=== PATIENT | female | born 1950 | race Caucasian/White ===

== ENCOUNTER 2022-03-28 15:48 | Outpatient (REF) | payer OTHER, SELFPAY ==
--- NOTE | ~2022-03-28 | XR_ITS ---
EXAMINATION: LEFT ANKLE, LEFT FOOT CLINICAL INFORMATION: Left foot and ankle pain COMPARISON: None TECHNIQUE: 2 views left ankle, 3 views left foot FINDINGS: Ankle: Bilateral soft tissue swelling is seen. The ankle mortise appears stable. No ankle joint effusion or fracture. Left foot: Degenerative changes are present at the interphalangeal joints as well as the first metatarsal phalangeal joint and at the metatarsal tarsal joints most marked in the second through third digits. No fractures or bony destructive lesions are seen. Well-corticated osseous density seen at the base of the fifth metatarsal without soft tissue swelling possibly related to chronic injury. Minimal plantar calcaneal spur. XR/XR foot LT min 3V IMPRESSION: Degenerative changes are present evidence of remote trauma. No evidence of an acute injury.
--- NOTE | ~2022-03-28 | XR_ITS ---
EXAMINATION: LEFT ANKLE, LEFT FOOT CLINICAL INFORMATION: Left foot and ankle pain COMPARISON: None TECHNIQUE: 2 views left ankle, 3 views left foot FINDINGS: Ankle: Bilateral soft tissue swelling is seen. The ankle mortise appears stable. No ankle joint effusion or fracture. Left foot: Degenerative changes are present at the interphalangeal joints as well as the first metatarsal phalangeal joint and at the metatarsal tarsal joints most marked in the second through third digits. No fractures or bony destructive lesions are seen. Well-corticated osseous density seen at the base of the fifth metatarsal without soft tissue swelling possibly related to chronic injury. Minimal plantar calcaneal spur. XR/XR ankle LT 2V IMPRESSION: Degenerative changes are present evidence of remote trauma. No evidence of an acute injury.
== END 2022-03-28 15:49 | disposition home or self-care (01) ==
LOC: HO.HMGCX 15:48
PROVIDERS: PCP Internal Medicine; Visit Provider Physician Assistant
DX: M79.672 Pain in left foot (principal)
CPT/HCPCS: 73600; 73630

== ENCOUNTER 2023-06-12 07:58 | Day surgery (SDC) | payer OTHER, SELFPAY ==
[2023-06-07 15:34] VITALS: BMI 38.8
--- NOTE | 2023-06-09 07:42 | MHC.SHP ---
Pre-Procedural Eval Section A Date of Service: 06/09/23 The patient is an INPATIENT: No Changes since office visit: No Cold of Flu in the past 2 weeks, No New Medical Problems, No Changes in Medication and No Patient answered all questions The History & Physical has been completed within 30 days and I have reviewed it.: Yes Section B Chief Complaint: Age-related nuclear cataract, right eye Allergies: Allergies Allergy/AdvReac Type Severity Reaction Status Date / Time No Known Allergies Allergy Verified 06/07/23 15:33 Plan Diagnosis/Plan: Unchanged I have reviewed the history and physical and performed a pertinent physical examination on my patient. No changes have occurred unless specified. Time Spent With Patient Time: Total time managing care of this patient today ____ minutes.
--- NOTE | 2023-06-09 10:31 | HO.ANESPROP2 ---
Documented by User: Radha Madrid NP 06/09/23 10:32 HPI - Anesthesia Eval Consult details Narrative: 72yo F for Right Cataract Extraction IOL Insertion Medically cleared No previous cataract on record [facility] Past Medical History Medical History (Updated 06/06/23 @ 16:31 by Samara Cordero, YAZMIN) Hx of flexible sigmoidoscopy Osteoporosis Varicose veins of legs DJD (degenerative joint disease) Anxiety Vitamin D deficiency Hx of malignant melanoma of skin Thyroid nodule Bilateral cataracts GERD (gastroesophageal reflux disease) Pre-diabetes Surgical History Surgical History (Updated 06/06/23 @ 16:31 by Samara Cordero, YAZMIN) Hx of hysterectomy Hx of appendectomy Hx of colonoscopy Hx of cholecystectomy Social History Social History (Updated 06/07/23 @ 15:36 by Samara Cordero RN) Are you a primary patient care technician to a significant other at home: No Do you presently have visiting nurse or other home services: No Patient Tobacco Use Status: Never used Tobacco Use of substances other than those prescribed or required for medical reasons: No Have you been hit, kicked, punched, or otherwise hurt by someone within the past year? If so, by whom?: No Are you DNR?: No Advance Directives: No Advance Directives Information Provided: Yes Advance Directives on File: No Recently lost weight without trying: No Meds Allergies Allergy/AdvReac Type Severity Reaction Status Date / Time No Known Allergies Allergy Verified 06/07/23 15:33 Home Medications Medication Instructions Recorded Confirmed Last Taken Type citalopram 20 mg tablet 10 mg PO DAILY 03/28/22 06/07/23 Unknown History ketoconazole 2 % topical cream appl topical BID 03/28/22 Unknown History [id number] 18 mg-FA 400 tab PO 03/28/22 Unknown History mcg-calcium 500 mg-vit K 50 mcg tablet (Women's Multivitamin) omeprazole 20 mg capsule,delayed 20 mg PO DAILY 03/28/22 06/07/23 Unknown History release Vitamin D3 06/07/23 Unknown History calcium carbonate 600 mg calcium 600 mg PO DAILY 06/07/23 06/07/23 Unknown History (1,500 mg) tablet (Calcium) Exam Exam Date and Time: June 09, 2023 1031 Height,Weight and Vital Signs: Height 5 ft 5 in Weight 105.687 kg Assessment and Plan Assessment Anesthesia Assessment: Chart Reviewed Documented by User: Anita Costello MD 06/12/23 09:20 PMFSH Past Medical History Medical History (Updated 06/06/23 @ 16:31 by Samara Cordero, YAZMIN) Hx of flexible sigmoidoscopy Osteoporosis Varicose veins of legs DJD (degenerative joint disease) Anxiety Vitamin D deficiency Hx of malignant melanoma of skin Thyroid nodule Bilateral cataracts GERD (gastroesophageal reflux disease) Pre-diabetes Family History Family history of problems with anesthesia: No Surgical History Surgical History (Updated 06/06/23 @ 16:31 by Samara Cordero, YAZMIN) Hx of hysterectomy Hx of appendectomy Hx of colonoscopy Hx of cholecystectomy History of Problems with Anesthesia: No Social History Social History (Updated 06/07/23 @ 15:36 by Samara Cordero, YAZMIN) Are you a primary patient care technician to a significant other at home: No Do you presently have visiting nurse or other home services: No Patient Tobacco Use Status: Never used Tobacco Use of substances other than those prescribed or required for medical reasons: No Have you been hit, kicked, punched, or otherwise hurt by someone within the past year? If so, by whom?: No Are you DNR?: No Advance Directives: No Advance Directives Information Provided: Yes Advance Directives on File: No Recently lost weight without trying: No Meds Allergies Allergy/AdvReac Type Severity Reaction Status Date / Time No Known Allergies Allergy Verified 06/07/23 15:33 Home Medications Medication Instructions Recorded Confirmed Last Taken Type citalopram 20 mg tablet 10 mg PO DAILY 03/28/22 06/07/23 Unknown History ketoconazole 2 % topical cream appl topical BID 03/28/22 Unknown History [id number] 18 mg-FA 400 tab PO 03/28/22 Unknown History mcg-calcium 500 mg-vit K 50 mcg tablet (Women's Multivitamin) omeprazole 20 mg capsule,delayed 20 mg PO DAILY 03/28/22 06/07/23 Unknown History release Vitamin D3 06/07/23 Unknown History calcium carbonate 600 mg calcium 600 mg PO DAILY 06/07/23 06/07/23 Unknown History (1,500 mg) tablet (Calcium) Exam Airway Mallampati Class: III TM Dist: >3cm Neck ROM: Full Assessment and Plan Assessment Anesthesia Assessment: Anesthesia Plan Discussed Final Anesthetic Review Family History of Problems with Anesthesia: No History of Problems with Anesthesia: No NPO: Yes ASA Class: III Final Preanesthetic Review: No Changes in Pt Med Stat, Meds/Allgs Chart Reviewed, Consent Obtained/Reviewed and Anes Risks/Benef Reviewed Patient Risk: Intermediate Procedure Risk: Low Anesthetic Plan Anesthetic Plan: MAC: Disposition: Standard PACU
[2023-06-12 09:06] VITALS: BMI 39.9
[2023-06-12] MEDS: Tetracaine HCl/PF 0.5% Oph Sol 4 ML DROPS 1 DROP EYE-RIGHT (09:08)
[2023-06-12] MEDS: Cyclopentolate 1 % Ophth Sol 2 ML DRPBTL 1 DROP EYE-RIGHT ×3 (09:08→09:13)
[2023-06-12] MEDS: Phenylephrine HCL 2.5% Oph SoL 2 ML BOTTLE 1 DROP EYE-RIGHT ×3 (09:09→09:13)
[2023-06-12] MEDS: Tropicamide 1 % Ophth Sol 3 ML BTL 1 DROP EYE-RIGHT ×3 (09:09→09:13)
[2023-06-12] MEDS: Ketorolac Tromethamine 0.5% Op 5 ML DROPS 1 DROP EYE-RIGHT ×3 (09:09→09:13)
--- NOTE | 2023-06-12 09:30 | HO.PNOPHT ---
Ophthalmology Procedure Procedure Date of Service: 06/12/23 Ophthalmology Viscoelastic: Healon Duet Dual Pack Pro Ophthalmology Lenses: SENSAR AR40 (e 7) Procedure Notes: PREOPERATIVE DIAGNOSIS: Decreased visual acuity right eye secondary to cataract POSTOPERATIVE DIAGNOSIS: Same PROCEDURE: Right cataract extraction with intraocular lens insertion SURGEON: Juventino Stacy M.D. ANESTHESIA: Topical/MAC ESTIMATED BLOOD LOSS: None COMPLICATIONS: None After obtaining informed consent, the patient was brought to the operating room suite and placed in the supine position. After adequate sedation per anesthesia, topical drops of Tetracaine were given to the right eye. The eye was then prepped and draped in the usual sterile fashion. The operating room microscope was then positioned over the operative eye and a lid speculum placed. A paracentesis was created. Viscoelastic was then instilled into the anterior chamber. A three plane incision was then created temporally, utilizing a 2.85 mm keratome. Capsulotomy forceps were then utilized to create a circular tear capsulotomy. Hydrodissection and hydrodelineation were carried out until adequate mobilization of the nucleus occurred. Phacoemulsification was then utilized to remove the dense central nucleus followed by removal of the cortical material utilizing the automated aspiration irrigation unit. Viscoelastic was instilled into the posterior capsular bag followed by placement of a posterior chamber intraocular lens without difficulty. The residual Viscoelastic was then removed utilizing the automated IA machine. The wound was checked and found to be watertight. The patient tolerated the procedure well and the lid speculum was removed. Intracameral injection of Vigamox 0.1 mL followed by a subtenon injection of Kenalog-40 0.2 mL were administered. The patient will be seen in the a.m.
[2023-06-12 10:07] VITALS: BP 163/88; PULSE 66; RESP 16; TEMP 36.3; O2SAT 99
== END 2023-06-12 10:10 | disposition home or self-care (01) ==
PROVIDERS: PCP Internal Medicine; Visit Provider Ophthalmology
PROC: (CPT 66985; principal; 2023-06-12 10:00)
DX: H25.11 Age-related nuclear cataract, right eye (principal); H52.4 Presbyopia; H44.23 Degenerative myopia, bilateral; H18.413 Arcus senilis, bilateral; H43.399 Other vitreous opacities, unspecified eye; I10 Essential (primary) hypertension; R73.03 Prediabetes; E55.9 Vitamin D deficiency, unspecified; E04.2 Nontoxic multinodular goiter; K21.9 Gastro-esophageal reflux disease without esophagitis; M81.0 Age-related osteoporosis without current pathological fracture; Z85.820 Personal history of malignant melanoma of skin; F41.9 Anxiety disorder, unspecified; E66.01 Morbid (severe) obesity due to excess calories; Z68.41 Body mass index [BMI] 40.0-44.9, adult; Z79.899 Other long term (current) drug therapy
CPT/HCPCS: 66984; J2250; J3301; V2632

== ENCOUNTER 2023-06-26 07:59 | Day surgery (SDC) | payer OTHER, SELFPAY ==
[2023-06-07 15:37] VITALS: BMI 38.8
--- NOTE | 2023-06-23 07:56 | MHC.SHP ---
Pre-Procedural Eval Section A Date of Service: 06/23/23 The patient is an INPATIENT: No Changes since office visit: No Cold of Flu in the past 2 weeks, No New Medical Problems, No Changes in Medication and No Patient answered all questions The History & Physical has been completed within 30 days and I have reviewed it.: Yes Section B Chief Complaint: Age-related nuclear cataract, left eye Allergies: Allergies Allergy/AdvReac Type Severity Reaction Status Date / Time No Known Allergies Allergy Verified 06/07/23 15:33 Plan Diagnosis/Plan: Unchanged I have reviewed the history and physical and performed a pertinent physical examination on my patient. No changes have occurred unless specified. Time Spent With Patient Time: Total time managing care of this patient today ____ minutes.
[2023-06-26 08:59] VITALS: BP 150/95; PULSE 71; RESP 16; TEMP 36.1; O2SAT 95
[2023-06-26] MEDS: Tetracaine HCl/PF 0.5% Oph Sol 4 ML DROPS 1 DROP EYE-LEFT (09:06)
[2023-06-26] MEDS: Tropicamide 1 % Ophth Sol 3 ML BTL 1 DROP EYE-LEFT ×3 (09:08→09:14)
[2023-06-26] MEDS: Cyclopentolate 1 % Ophth Sol 2 ML DRPBTL 1 DROP EYE-LEFT ×3 (09:08→09:13)
[2023-06-26] MEDS: Ketorolac Tromethamine 0.5% Op 5 ML DROPS 1 DROP EYE-LEFT ×3 (09:09→09:15)
[2023-06-26] MEDS: Phenylephrine HCL 2.5% Oph SoL 2 ML BOTTLE 1 DROP EYE-LEFT ×3 (09:10→09:15)
--- NOTE | 2023-06-26 09:50 | HO.PNOPHT ---
Ophthalmology Procedure Procedure Date of Service: 06/26/23 Ophthalmology Viscoelastic: Healon Duet Dual Pack Pro Ophthalmology Lenses: SENSAR AR40 (7.5) Procedure Notes: PREOPERATIVE DIAGNOSIS: Decreased visual acuity left eye secondary to cataract POSTOPERATIVE DIAGNOSIS: Same PROCEDURE: Left cataract extraction with intraocular lens insertion SURGEON: Juventino Stacy M.D. ANESTHESIA: Topical/MAC ESTIMATED BLOOD LOSS: None COMPLICATIONS: None After obtaining informed consent, the patient was brought to the operation room suite and placed in the supine position. After adequate sedation per anesthesia, topical drops of Tetracaine were given to the left eye. The eye was then prepped and draped in the usual sterile fashion. The operating room microscope was then positioned over the operative eye and a lid speculum placed. A paracentesis was created. Viscoelastic was then instilled into the anterior chamber. A three plane incision was then created temporally, utilizing a 2.85 mm keratome. Capsulotomy forceps were then utilized to create a circular tear capsulotomy. Hydrodissection and hydrodelineation were carried out until adequate mobilization of the nucleus occurred. Phacoemulsification was then utilized to remove the dense central nucleus followed by removal of the cortical material utilizing the automated aspiration irrigation unit. Viscoat elastic was instilled into the posterior capsular bag followed by placement of a posterior chamber intraocular lens without difficulty. The residual Viscoat elastic was then removed utilizing the automated IA machine. The wound was check and found to be watertight. The patient tolerated the procedure well and the lid speculum was removed. Intracameral injection of Vigamox 0.1 mL followed by a subtenon injection of Kenalog-40 0.2 mL were administered. The patient will be seen in the a.m.
[2023-06-26 10:10] VITALS: BP 152/77; PULSE 67; RESP 13; TEMP 36.2; O2SAT 98
== END 2023-06-26 10:28 | disposition home or self-care (01) ==
PROVIDERS: PCP Internal Medicine; Visit Provider Ophthalmology
PROC: (CPT 66985; principal; 2023-06-26 10:00)
DX: H25.12 Age-related nuclear cataract, left eye (principal); H52.4 Presbyopia; H44.23 Degenerative myopia, bilateral; H18.413 Arcus senilis, bilateral; H43.393 Other vitreous opacities, bilateral; I10 Essential (primary) hypertension; F41.9 Anxiety disorder, unspecified; E55.9 Vitamin D deficiency, unspecified; R73.03 Prediabetes; M81.0 Age-related osteoporosis without current pathological fracture; Z85.820 Personal history of malignant melanoma of skin; Z79.899 Other long term (current) drug therapy; Z98.890 Other specified postprocedural states
CPT/HCPCS: 66984; J2250; J3010; J3301; V2788

== ENCOUNTER 2024-01-08 12:22 | Outpatient (REF) | payer OTHER, SELFPAY ==
[2024-01-08 13:00] VITALS: BP 154/70; PULSE 77; RESP 16; TEMP 36.1; O2SAT 95; BMI 40.0
== END 2024-01-08 12:23 | disposition home or self-care (01) ==
LOC: HO.MS 12:22
PROVIDERS: PCP Internal Medicine; Visit Provider Ophthalmology
PROC: (CPT 66821; principal; 2024-01-08 13:20)
DX: H26.491 Other secondary cataract, right eye (principal)
CPT/HCPCS: 66821